=== PATIENT | female | born 1965 | race Hispanic/Latino ===

== ENCOUNTER → 2018-11-01 | Outpatient (CLI) | payer BC | END | disposition home or self-care (01) | LOC: OIH 15:45 | PROVIDERS: ATTEND Internal Medicine Gastroenterology | DX: R76.12 Nonspecific reaction to cell mediated immunity measurement of gamma interferon antigen response without active tuberculosis (principal) | CPT/HCPCS: 71046 ==

== ENCOUNTER 2023-05-15 19:17 | Emergency (ER) | payer BC ==
[~2023-05-15] VITALS: Ht 160 cm; Wt 78.0 kg
[2023-05-15] MEDS ORDERED: ACETAMINOPHEN 500 MG TABLET PO ONE (20:00)
[2023-05-15 20:31] VITALS: BP 148/62; PULSE 78; RESP 18; O2SAT 98
[2023-05-15] MEDS ORDERED: ACET-2079 PO (20:33)
== END 2023-05-15 20:55 | disposition home or self-care (01) ==
LOC: EDH 19:17
DX: S42.291A Other displaced fracture of upper end of right humerus, initial encounter for closed fracture (principal); E10.9 Type 1 diabetes mellitus without complications; E03.9 Hypothyroidism, unspecified; Z90.49 Acquired absence of other specified parts of digestive tract; Z90.710 Acquired absence of both cervix and uterus; Z98.890 Other specified postprocedural states; W01.0XXA Fall on same level from slipping, tripping and stumbling without subsequent striking against object, initial encounter; Y93.89 Activity, other specified; Y92.89 Other specified places as the place of occurrence of the external cause; Y99.8 Other external cause status
CPT/HCPCS: 73030; 73060; 73090

== ENCOUNTER 2023-09-23 01:53 | Observation (INO) | payer BC ==
[~2023-09-23] VITALS: Ht 152.4 cm; Wt 76.2 kg
[~2023-09-23 01:53] MED LIST: ACET-2079 PO
[2023-09-23 02:35] LABS: BASOPHILS % (AUTO) 1.1 % (0.0-5.0); EOSINOPHILS # (AUTO) 0.62 K/uL (0.00-0.70); EOSINOPHILS % (AUTO) 6.6 % (0.0-8.0); HEMATOCRIT 36.4 % (36-48); IMMATURE GRANULOCYTE ABSOLUTE 0.03 K/uL (0-1); LYMPHOCYTES # (AUTO) 2.1 K/uL (1.0-4.8); MEAN CORPUSCULAR HEMOGLOBIN 34.8 pg (27.0-33.0); MEAN CORPUSCULAR HGB CONC 34.1 g/dL (32.0-36.0); MEAN CORPUSCULAR VOLUME 102.2 fL (79-99); MONOCYTES # (AUTO) 0.8 K/uL (0.1-1.0); MONOCYTES % (AUTO) 8.5 % (3.0-13.0); NEUTROPHILS # (AUTO) 5.8 K/uL (1.8-7.7); NEUTROPHILS % (AUTO) 61.5 % (40.0-77.0); PLATELET COUNT (AUTO) 313 K/uL (130-400); RED BLOOD CELL COUNT(AUTO) 3.56 MIL/uL (4.00-5.50); RED CELL DISTRIBUTION WIDTH 12.8 % (11.0-15.5); WHITE BLOOD COUNT (AUTO) 9.5 K/uL (4.8-10.8)
[2023-09-23 02:47] LABS: CREATININE 0.9 mg/dL (0.5-1.5); POTASSIUM 3.7 mmol/L (3.5-5.1)
[2023-09-23 02:50] LABS: INR <= 0.93 (0.85-1.15); PROTHROMBIN TIME 10.7 SEC (9.6-11.6)
[2023-09-23 02:52] LABS: ALBUMIN 3.5 g/dL (3.5-5.0); BILIRUBIN,TOTAL 0.6 mg/dL (0.2-1.0); PARTIAL THROMBOPLASTIN TIME 25.9 SEC (26.3-35.5); TOTAL PROTEIN, SERUM 7.6 g/dL (6.0-8.3)
[2023-09-23 03:26] LABS: B-TYPE NATRIURETIC PEPTIDE 75 pg/mL (0-100)
[2023-09-23] MEDS: METOPROLOL TARTRATE 1 MG/ML 5ML VIAL IV ONE (03:30)
[2023-09-23] MEDS ORDERED: POTASSIUM CHLORIDE 20MEQ/100ML 100 ML IV PRN (05:00)
[2023-09-23] MEDS ORDERED: ONDANSETRON 4MG INJ IV PRN (05:00)
[2023-09-23] MEDS: 0.9%NACL 1000ML 2,000 ML IV ONE (06:11)
[2023-09-23] MEDS: MAGNESIUM 2GM PREMIX 50ML 50 ML IV PRN (06:11)
[2023-09-23 07:27] LABS: EOSINOPHILS # (AUTO) 0.58 K/uL (0.00-0.70); EOSINOPHILS % (AUTO) 5.8 % (0.0-8.0); HEMATOCRIT 34.3 % (36-48); IMMATURE GRANULOCYTE ABSOLUTE 0.04 K/uL (0-1); LYMPHOCYTES % (AUTO) 20.1 % (21.0-51.0); MEAN CORPUSCULAR HEMOGLOBIN 34.7 pg (27.0-33.0); MEAN CORPUSCULAR HGB CONC 33.5 g/dL (32.0-36.0); MEAN CORPUSCULAR VOLUME 103.6 fL (79-99); MONOCYTES # (AUTO) 0.7 K/uL (0.1-1.0); NEUTROPHILS # (AUTO) 6.6 K/uL (1.8-7.7); NEUTROPHILS % (AUTO) 65.7 % (40.0-77.0); PLATELET COUNT (AUTO) 261 K/uL (130-400); RED BLOOD CELL COUNT(AUTO) 3.31 MIL/uL (4.00-5.50); RED CELL DISTRIBUTION WIDTH 12.9 % (11.0-15.5); WHITE BLOOD COUNT (AUTO) 10.1 K/uL (4.8-10.8)
[2023-09-23 07:47] LABS: ALBUMIN 3.1 g/dL (3.5-5.0); BILIRUBIN,TOTAL 0.5 mg/dL (0.2-1.0); CREATININE 0.7 mg/dL (0.5-1.5); MAGNESIUM 2.1 mg/dL (1.80-2.40); POTASSIUM 3.2 mmol/L (3.5-5.1); THYROID STIMULATING HORMONE 3.26 uIU/mL (0.36-3.74); TOTAL PROTEIN, SERUM 6.9 g/dL (6.0-8.3)
[2023-09-23] MEDS: FAMOTIDINE 20MG TAB PO SCH (08:58)
[2023-09-23] MEDS: POTASSIUM CHLORIDE 10% ELIXIR 20 MEQ/15 ML UDCUP PO PRN (18:54)
[2023-09-23] MEDS: KCL 20 MEQ ERTAB PO PRN (23:15)
[2023-09-23 23:40] VITALS: O2SAT 100
[2023-09-24] MEDS ORDERED: OMEP40CA21 PO (02:19)
[2023-09-24] MEDS ORDERED: AZAT100T2 PO (02:19)
[2023-09-24] MEDS ORDERED: ERGO500093 PO (02:19)
[2023-09-24] MEDS ORDERED: LEVO50CA4 PO (02:19)
[2023-09-24] MEDS ORDERED: MESA250C2 PO (02:19)
[2023-09-24] MEDS ORDERED: SIMV10TA97 PO (02:19)
[2023-09-24] MEDS ORDERED: PANT40TA54 PO (02:19)
[2023-09-24] MEDS ORDERED: FERR325T29 PO (02:19)
[2023-09-24] MEDS ORDERED: PARO7.5C2 PO (02:26)
[2023-09-24] MEDS ORDERED: DULA0.75 SQ (02:26)
[2023-09-24] MEDS ORDERED: INSLAN SQ (02:26)
[2023-09-24] MEDS ORDERED: INSU200I SQ (02:27)
[2023-09-24 03:42] VITALS: BP 147/76; PULSE 102; RESP 18
[2023-09-24] MEDS: INSULIN HUMULIN R 100 UNIT/ML 3ML SQ SCH (05:42)
[2023-09-24 08:00] VITALS: BP 141/66; PULSE 49; RESP 18
[2023-09-24 09:25] VITALS: O2SAT 97
[2023-09-24 09:49] LABS: BASOPHILS # (AUTO) 0.08 K/uL (0.00-0.20); BASOPHILS % (AUTO) 0.8 % (0.0-5.0); EOSINOPHILS # (AUTO) 0.69 K/uL (0.00-0.70); HEMATOCRIT 34.4 % (36-48); IMMATURE GRANULOCYTE ABSOLUTE 0.04 K/uL (0-1); LYMPHOCYTES # (AUTO) 1.5 K/uL (1.0-4.8); LYMPHOCYTES % (AUTO) 15.4 % (21.0-51.0); MEAN CORPUSCULAR HEMOGLOBIN 35.7 pg (27.0-33.0); MEAN CORPUSCULAR HGB CONC 33.7 g/dL (32.0-36.0); MEAN CORPUSCULAR VOLUME 105.8 fL (79-99); MONOCYTES # (AUTO) 0.7 K/uL (0.1-1.0); MONOCYTES % (AUTO) 6.7 % (3.0-13.0); NEUTROPHILS # (AUTO) 6.9 K/uL (1.8-7.7); NEUTROPHILS % (AUTO) 69.7 % (40.0-77.0); PLATELET COUNT (AUTO) 278 K/uL (130-400); RED BLOOD CELL COUNT(AUTO) 3.25 MIL/uL (4.00-5.50); WHITE BLOOD COUNT (AUTO) 9.8 K/uL (4.8-10.8)
[2023-09-24 10:00] LABS: CREATININE 0.8 mg/dL (0.5-1.5); POTASSIUM 3.8 mmol/L (3.5-5.1)
[2023-09-24 10:05] LABS: ALBUMIN 3.1 g/dL (3.5-5.0)
[2023-09-24 10:17] LABS: BILIRUBIN,TOTAL 0.6 mg/dL (0.2-1.0)
[2023-09-24 12:00] VITALS: BP 120/78; PULSE 95; RESP 18
[2023-09-24] MEDS ORDERED: AMOX1TAB16 PO (12:32)
[2023-09-24] MEDS: CEFTRIAXONE 1G VIAL IVPB ONE (12:52)
== END 2023-09-24 15:30 | disposition home or self-care (01) ==
LOC: EDH 01:53 → EDHIP 04:48 → INTOOBSV 04:48 → 4CH 23:03
PROVIDERS: ADMIT Hospitalist; ATTEND Hospitalist
DX: S01.01XA Laceration without foreign body of scalp, initial encounter (principal); S50.812A Abrasion of left forearm, initial encounter; H70.93 Unspecified mastoiditis, bilateral; I10 Essential (primary) hypertension; E66.9 Obesity, unspecified; E03.9 Hypothyroidism, unspecified; E11.43 Type 2 diabetes mellitus with diabetic autonomic (poly)neuropathy; K31.84 Gastroparesis; Z90.49 Acquired absence of other specified parts of digestive tract; Z90.710 Acquired absence of both cervix and uterus; Z79.4 Long term (current) use of insulin; Z68.32 Body mass index [BMI] 32.0-32.9, adult; W19.XXXA Unspecified fall, initial encounter; Y93.01 Activity, walking, marching and hiking; Y92.091 Bathroom in other non-institutional residence as the place of occurrence of the external cause; Y99.8 Other external cause status
CPT/HCPCS: 99285; 84443; 82550; 83735 ×2; 84484 ×2; 80053 ×3; 83880; 85025 ×3; 85610; 85730; 82948 ×3; 36415 ×2; 71045; 70450; 72125; 93306; 93880; 96365; 12002; 93005; 96375; J3475; J7030; G0378 ×3; J0696; 96366